=== PATIENT | male | born 1950 | race Caucasian/White ===

== ENCOUNTER 2021-02-25 07:40 | Inpatient (IN) | payer MEDICARE, BC ==
[~2021-02-25] VITALS: Ht 182.9 cm; Wt 93.0 kg
[2021-02-25] MEDS ORDERED: PRED5 PO (08:14)
[2021-02-25] MEDS ORDERED: CYMBALTA30 M2 PO (08:14)
[2021-02-25] MEDS ORDERED: PLAVIX75 MG PO (08:15)
[2021-02-25] MEDS ORDERED: OXYC5 PO (08:15)
[2021-02-25] MEDS ORDERED: TRAZ50 PO (08:16)
[2021-02-25 08:17] LABS: BASOPHILS ABSOLUTE AUTO 0.06 K/mm3 (0.00-0.23); BASOPHILS PERCENT AUTO 1 % (0-2); EOSINOPHILS ABSOLUTE AUTO 0.08 K/mm3 (0.00-0.68); EOSINOPHILS PERCENT AUTO 1 % (0-6); Hematocrit 46.2 % (37.0-53.0); Hemoglobin 15.6 g/dL (13.5-17.5); IMMATURE GRAN ABSOLUTE AUTO 0.02 K/mm3 (0.00-0.10); IMMATURE GRAN PERCENT AUTO 0 % (0-1); LYMPHOCYTES ABSOLUTE AUTO 1.83 K/mm3 (0.84-5.20); LYMPHOCYTES PERCENT AUTO 28 % (21-46); MONOCYTES ABSOLUTE AUTO 0.48 K/mm3 (0.16-1.47); MONOCYTES PERCENT AUTO 7 % (4-13); Mean Corpuscular HGB 30.1 pg (26.0-34.0); Mean Corpuscular HGB Conc 33.8 g/dL (31.5-36.5); Mean Corpuscular Volume 89 fL (80-100); NEUTROPHILS ABSOLUTE AUTO 4.07 K/mm3 (1.96-9.15); NEUTROPHILS PERCENT AUTO 62 % (41-73); Platelet Count 267 K/mm3 (150-400); RDW Coefficient Variation 12.4 % (11.7-14.2); Red Blood Cell Count 5.18 M/mm3 (4.30-5.90); White Blood Cell Count 6.54 K/mm3 (4.00-11.30)
[2021-02-25 08:42] LABS: Alanine Aminotransfer (ALT/SGP 28 U/L (12-78); Albumin, Blood 3.7 g/dL (3.4-5.0); Albumin/Globulin Ratio 1.1 (0.8-1.8); Alk Phos 87 U/L (50-136); Anion Gap 5 mmol/L (6-16); Aspartate Aminotrans (AST/SGOT 14 U/L (12-37); Bilirubin, Total 0.9 mg/dL (0.1-1.0); Blood Urea Nitrogen 16 mg/dL (8-24); Bun/Creatinine Ratio 18.5 (12.0-20.0); CO2, Blood 28 mmol/L (21-32); Calcium, Blood 9.3 mg/dL (8.5-10.1); Chloride, Blood 103 mmol/L (98-108); Creatinine, Blood 0.87 mg/dL (0.60-1.20); Globulin, Blood 3.5 g/dL (2.2-4.0); Glomerular Filtration Rate >60 (60-); Glucose, Blood 274 mg/dL (70-99); Potassium, Blood 4.1 mmol/L (3.5-5.5); Sodium, Blood 136 mmol/L (136-145); Total Protein, Blood 7.2 g/dL (6.4-8.2); Troponin I <0.015 ng/mL (0.000-0.040)
[2021-02-25] MEDS ORDERED: LINZESS145 MCG PO ×2 (13:42→21:17)
[2021-02-25] MEDS ORDERED: PREG300 PO (21:18)
--- NOTE | 2021-02-26 06:10 | NUR ---
SHIFT SUMMARY PT IS A 70 Y/O MALE, ADMITTED FOR CP. HE IS A&O X 4, INDEPENDENT IN THE ROOM. PT REPORTED CONSTANT CHEST PRESSURE DURING THE NIGHT, BETWEEN 7-8/10 THAT WAS NOT RELIEVED BY PRN TYLENOL OR OXYCODONE. HE ALSO REPORTED R SHOULDER AND NECK PAIN THAT WAS PARTIALLY RELIEVED WITH PRN PAIN MEDS. NO C/O NAUSEA OR SOB. TELE SHOWED NSR @ 60S. VITAL SIGNS OTHERWISE STABLE. HOSPITALIST DR CORTEZ INFORMED OF PT CHEST PRESSURE, ORDERED IV FENTANYL FOR RELIEF. NO OTHER ACUTE CHANGES IN PT CONDITION NOTED DURING THE NIGHT. WILL CONTINUE TO MONITOR AND TREAT PER EMAR UNTIL HAND OFF TO DAY SHIFT RN.
[2021-02-26 13:45] LABS: BASOPHILS ABSOLUTE AUTO 0.05 K/mm3 (0.00-0.23); BASOPHILS PERCENT AUTO 1 % (0-2); EOSINOPHILS ABSOLUTE AUTO 0.04 K/mm3 (0.00-0.68); EOSINOPHILS PERCENT AUTO 1 % (0-6); Hematocrit 45.4 % (37.0-53.0); Hemoglobin 15.5 g/dL (13.5-17.5); IMMATURE GRAN ABSOLUTE AUTO 0.02 K/mm3 (0.00-0.10); IMMATURE GRAN PERCENT AUTO 0 % (0-1); LYMPHOCYTES ABSOLUTE AUTO 1.13 K/mm3 (0.84-5.20); LYMPHOCYTES PERCENT AUTO 16 % (21-46); MONOCYTES ABSOLUTE AUTO 0.37 K/mm3 (0.16-1.47); MONOCYTES PERCENT AUTO 5 % (4-13); Mean Corpuscular HGB 29.9 pg (26.0-34.0); Mean Corpuscular HGB Conc 34.1 g/dL (31.5-36.5); Mean Corpuscular Volume 88 fL (80-100); Mean Platelet Volume 10.3 fL (9.1-12.4); NEUTROPHILS PERCENT AUTO 78 % (41-73); Platelet Count 252 K/mm3 (150-400); RDW Coefficient Variation 12.3 % (11.7-14.2); RDW Standard Deviation 39.9 fL (35.1-46.3); Red Blood Cell Count 5.19 M/mm3 (4.30-5.90); White Blood Cell Count 7.31 K/mm3 (4.00-11.30)
[2021-02-26 13:58] LABS: International Normalized Ratio 0.98; Prothrombin Time Results 10.3 Sec (9.7-11.5)
[2021-02-26 14:14] LABS: CHOL/HDL RATIO 3.9; Cholesterol 173 mg/dL (50-200); HDL Cholesterol 44 mg/dL (>39); LDL/HDL RATIO 2.3; Low Density Lipoprotein Chol 100 mg/dL (0-110); Triglycerides 145 mg/dL (30-160); Very Low Density Lipoprot Chol 29 mg/dL (6-32)
--- NOTE | 2021-02-26 15:01 | NUR ---
TRANSFER OF CARE TO [id number] RN. PT TAKEN TO EMD TEACHER FOR ANGIO. REPORT CALLED TO U7 RN.
--- NOTE | 2021-02-26 15:01 | NUR ---
REPORT NOTE THIS NURSE RECIEVED REPORT FROM TIA RN AT 1500. PT NOW IN CHAMBER WALKER.
[2021-02-26 15:41] LABS: SARS-Cov-2 (COVID-19) PCR, MMC NEGATIVE (NEGATIVE)
--- NOTE | 2021-02-26 17:19 | NUR ---
ASSUMPTION OF CARE NOTE PT IS ALERT AND ORIENTED X 4. RIGHT RADIAL ACCESS SITE HAS TR BAND WITH 10 ML OF AIR. TIME OF ARRIVAL TO PCU WAS 1630. VITAL SIGNS ARE STABLE. RIGHT RADIAL SITE HAS NO APPARENT BLEEDING, DISTAL EXTREMETY CAPILLARY REFILL IS 1+, EXTREMETY IS WARM TO TOUCH. SPO2 MONITOR ON RIGHT FINGER AND SATURATIONS 98% VIA RA. PT DENIES CHEST PAIN BT COMPLAINS OF RIGHT SHOULDER PAIN. WILL MEDICATE PER EMAR.
--- NOTE | 2021-02-26 18:19 | NUR ---
CLARIFIED DIET ORDERS WITH DR GANDHI AND NEW ORDERS FOR INSULIN AND CBG ACHS.
--- NOTE | 2021-02-26 19:20 | NUR ---
SHIFT SUMMARY VITAL SIGNS REMAIN STABLE. BLOOD PRESSURE WAS BECOMING ELEVATED W/ SBP 168, PRN HYDRALAZINE GIVEN PER EMAR ORDERS. PT DENIED CHEST PAIN BUT REPORTED RIGHT SHOULDER PAIN 7/10, MEDICATED PER EMAR ORDERS, PAIN NOW 4/10. NS INFUSING IN LEFT AC IV AT 100ML/HR, PT REMAINS ON ROOM AIR, SPO2 IN 90'S. TR BAND ON RIGHT RADIAL SITE HAS 10 ML AIR, SITE HAS REMAINED UNCHANGED FROM PREVIOUS ASSESSMENT. PT IS ALERT AND ORIENTED, USES BEDSIDE URINAL. NO OTHER ACUTE CHANGES NOTED.
--- NOTE | 2021-02-26 20:58 | NUR ---
2CC AIR REMOVED RIGHT RADIAL TR BAND. RANDI RN
--- NOTE | 2021-02-26 21:30 | NUR ---
2ML AIR REMOVED FROM RIGHT RADIAL TR BAND. PT TOLERATED WELL, C/O INABILITY TO SLEEP. EDUCATED ON PREOCESS OF REMOVING AIR AND MONITORING TR BAND/ RIGHT RADIAL SITE. DAO BRYAN
--- NOTE | 2021-02-27 03:02 | NUR ---
RIGHT RADIAL SITE WITHOUT DRAINAGE, OPSITE DRESSING INTACT, GOOD CMS TO FINGERS. SPINT REMAINS REMINDER TO AVOID USING HAND/WRIST. DAO BRYAN
--- NOTE | 2021-02-27 03:10 | NUR ---
SHIFT SUMMARY: PT HAD FAIR NIGHT, FREQUENTLY CHECKS TO RIGHT RADIAL SITE, TR BAND CURRENTLY OFF AND TRANSPARENT DRESSING INTACT, NO OOZONG/BLEEDING NOTED. RADIAL PULSE PALP WITH GOOD CMS TO FINGERS. WRIST IMOBILIZER REMAINS ON REMINDER TO AVOID USE OF WRIST AND HAND. C/O RIGHT SHOULDER PAIN, MEDICATED WITH PRN PAIN MEDS SEE JUN. VSS, TELE SHOWS SB IN THE 50'S WITH OCCASIONAL DIPS INTO 40'S, UNSUSTAINED. BED LOCKED AND LOW, CALL WHITE IN REACH AND PT USING IT APPROPRIATELY . DAO PALACIO
--- NOTE | 2021-02-27 04:35 | NUR ---
NO C HANGE IN RIGHT RADIAL SITE, DAO BRYAN
--- NOTE | 2021-02-27 08:00 | NUR ---
REDNESS ON COCCYX RECEIVED IN REPORT OF REDNESS ON PATIENT'S COCCYX. MEPILEX IN PLACE, C/D/I. AT THIS TIME, PATIENT DOES NOT TOLERATE STAFF TOUCHING PATIENT. PATIENT PULLS AWAY. ATTEMPT TO PLACE PILLOWS UNDER PATIENT'S HIP TO RELIEVE PRESSURE, PATIENT MOVES OFF PILLOWS AFTER PLACED.
--- NOTE | 2021-02-27 12:20 | NUR ---
DISCHARGE PATIENT ALERT AND ORIENTED T/O SHIFT. VSS. IVs REMOVED WNL. DENIED CHEST PAIN OR PRESSURE SINCE START OF SHIFT. DISCHARGE INFORMATION GONE OVER WITH PATIENT. ALL BELONGINGS ACCOMPANIED PATIENT. PICKED HIM UP TO BE DISCHARGED HOME.
== END 2021-02-27 12:17 | disposition home or self-care (01) | DRG 247 ==
LOC: ER 07:40 → ERHOLD 07:41 → MEDS 07:41 → PCU 02-26 14:30
PROVIDERS: Emergency Medicine; Internal Medicine Cardiovascular Disease; ADMIT Family Medicine
PROC: 027035Z Dilation of Coronary Artery, One Artery with Two Drug-eluting Intraluminal Devices, Percutaneous Approach (ICD-10-PCS; principal; 2021-02-26)
PROC: 4A033BC Measurement of Arterial Pressure, Coronary, Percutaneous Approach (ICD-10-PCS; 2021-02-26)
PROC: B2111ZZ Fluoroscopy of Multiple Coronary Arteries using Low Osmolar Contrast (ICD-10-PCS; 2021-02-26)
PROC: 4A023N7 Measurement of Cardiac Sampling and Pressure, Left Heart, Percutaneous Approach (ICD-10-PCS; 2021-02-26)
DX: I25.110 Atherosclerotic heart disease of native coronary artery with unstable angina pectoris (principal); F11.20 Opioid dependence, uncomplicated; G89.29 Other chronic pain; M54.9 Dorsalgia, unspecified; E78.5 Hyperlipidemia, unspecified; M79.7 Fibromyalgia; Z20.822 Contact with and (suspected) exposure to COVID-19; K58.9 Irritable bowel syndrome, unspecified; M19.90 Unspecified osteoarthritis, unspecified site; E11.9 Type 2 diabetes mellitus without complications; I10 Essential (primary) hypertension; Z95.5 Presence of coronary angioplasty implant and graft; Z88.0 Allergy status to penicillin; Z79.02 Long term (current) use of antithrombotics/antiplatelets; Z79.52 Long term (current) use of systemic steroids; Z79.899 Other long term (current) drug therapy
CPT/HCPCS: 36415; 71045; 78452; 80053; 80061; 82947; 83036; 83880; 84484; 85025; 85347; 85610; 86850; 86900; 86901; 93005; 93010; 93017; 93306; 93458; 93571; 93572; 96372; 96374; 96375; 96376; 99152; 99153; 99285-25; A9270; A9500; C1725; C1769; C1874; C1887; C1894; C9600; G0378; J0360; J0706; J1644; J1650; J1815; J2405; J2785; J3010; J7030; J7040; J7512; Q9967; U0004

== ENCOUNTER 2021-03-09 09:08 | Emergency (ER) | payer MEDICARE, BC ==
[~2021-03-09] VITALS: Ht 182.9 cm; Wt 98.4 kg
[~2021-03-09 09:08] MED LIST: CYMBALTA30 M2 PO; LINZESS145 MCG PO; OXYC5 PO; PLAVIX75 MG PO; PRED5 PO; PREG300 PO; TRAZ50 PO
[2021-03-09 09:57] LABS: BASOPHILS ABSOLUTE AUTO 0.06 K/mm3 (0.00-0.23); BASOPHILS PERCENT AUTO 1 % (0-2); EOSINOPHILS ABSOLUTE AUTO 0.08 K/mm3 (0.00-0.68); EOSINOPHILS PERCENT AUTO 1 % (0-6); Hematocrit 43.3 % (37.0-53.0); Hemoglobin 14.7 g/dL (13.5-17.5); IMMATURE GRAN ABSOLUTE AUTO 0.02 K/mm3 (0.00-0.10); IMMATURE GRAN PERCENT AUTO 0 % (0-1); LYMPHOCYTES ABSOLUTE AUTO 1.89 K/mm3 (0.84-5.20); LYMPHOCYTES PERCENT AUTO 25 % (21-46); MONOCYTES ABSOLUTE AUTO 0.46 K/mm3 (0.16-1.47); MONOCYTES PERCENT AUTO 6 % (4-13); Mean Corpuscular HGB 29.9 pg (26.0-34.0); Mean Corpuscular HGB Conc 33.9 g/dL (31.5-36.5); Mean Corpuscular Volume 88 fL (80-100); Mean Platelet Volume 10.5 fL (9.1-12.4); NEUTROPHILS ABSOLUTE AUTO 5.12 K/mm3 (1.96-9.15); NEUTROPHILS PERCENT AUTO 67 % (41-73); Platelet Count 290 K/mm3 (150-400); RDW Coefficient Variation 12.7 % (11.7-14.2); RDW Standard Deviation 41.1 fL (35.1-46.3); Red Blood Cell Count 4.91 M/mm3 (4.30-5.90); White Blood Cell Count 7.63 K/mm3 (4.00-11.30)
[2021-03-09 10:12] LABS: Alanine Aminotransfer (ALT/SGP 37 U/L (12-78); Albumin, Blood 3.4 g/dL (3.4-5.0); Alk Phos 85 U/L (50-136); Anion Gap 6 mmol/L (6-16); Aspartate Aminotrans (AST/SGOT 16 U/L (12-37); Bilirubin, Total 1.1 mg/dL (0.1-1.0); Blood Urea Nitrogen 11 mg/dL (8-24); Bun/Creatinine Ratio 14.3 (12.0-20.0); CO2, Blood 24 mmol/L (21-32); Calcium, Blood 9.3 mg/dL (8.5-10.1); Chloride, Blood 103 mmol/L (98-108); Creatinine, Blood 0.77 mg/dL (0.60-1.20); Globulin, Blood 3.5 g/dL (2.2-4.0); Glomerular Filtration Rate >60 (60-); Glucose, Blood 298 mg/dL (70-99); Potassium, Blood 4.3 mmol/L (3.5-5.5); Sodium, Blood 133 mmol/L (136-145); Total Protein, Blood 6.9 g/dL (6.4-8.2); Troponin I <0.015 ng/mL (0.000-0.040)
[2021-03-09 10:26] LABS: SARS-Cov-2 (COVID-19) PCR, MMC NEGATIVE (NEGATIVE)
== END 2021-03-09 11:55 | disposition left against medical advice (07) ==
LOC: ER 09:08
PROVIDERS: Physician Assistant
DX: R07.9 Chest pain, unspecified (principal); Z53.21 Procedure and treatment not carried out due to patient leaving prior to being seen by health care provider
CPT/HCPCS: 36415; 71046; 80053; 83690; 83880; 84484; 85025; 93005; 93010; 99285-25; U0004

== ENCOUNTER 2021-03-12 11:28 | Observation (INO) | payer MEDICARE, BC ==
[~2021-03-12] VITALS: Ht 182.9 cm; Wt 96.5 kg
[2021-03-12 12:16] LABS: BASOPHILS ABSOLUTE AUTO 0.07 K/mm3 (0.00-0.23); BASOPHILS PERCENT AUTO 1 % (0-2); EOSINOPHILS ABSOLUTE AUTO 0.14 K/mm3 (0.00-0.68); EOSINOPHILS PERCENT AUTO 2 % (0-6); Hematocrit 44.4 % (37.0-53.0); Hemoglobin 14.8 g/dL (13.5-17.5); IMMATURE GRAN ABSOLUTE AUTO 0.02 K/mm3 (0.00-0.10); IMMATURE GRAN PERCENT AUTO 0 % (0-1); LYMPHOCYTES ABSOLUTE AUTO 2.06 K/mm3 (0.84-5.20); LYMPHOCYTES PERCENT AUTO 25 % (21-46); MONOCYTES ABSOLUTE AUTO 0.42 K/mm3 (0.16-1.47); MONOCYTES PERCENT AUTO 5 % (4-13); Mean Corpuscular HGB 29.7 pg (26.0-34.0); Mean Corpuscular HGB Conc 33.3 g/dL (31.5-36.5); Mean Corpuscular Volume 89 fL (80-100); Mean Platelet Volume 10.4 fL (9.1-12.4); NEUTROPHILS ABSOLUTE AUTO 5.68 K/mm3 (1.96-9.15); NEUTROPHILS PERCENT AUTO 68 % (41-73); Platelet Count 289 K/mm3 (150-400); RDW Coefficient Variation 13.1 % (11.7-14.2); RDW Standard Deviation 42.8 fL (35.1-46.3); Red Blood Cell Count 4.98 M/mm3 (4.30-5.90); White Blood Cell Count 8.39 K/mm3 (4.00-11.30)
[2021-03-12] MEDS ORDERED: METFORMIN HCL500 M2 PO (12:19)
[2021-03-12] MEDS ORDERED: LIPITOR80 MG PO (12:19)
[2021-03-12] MEDS ORDERED: METOPROLOL TART50 M6 PO (12:20)
[2021-03-12] MEDS ORDERED: BASAGLAR K100 UNIT/3 SC (12:20)
[2021-03-12] MEDS ORDERED: OXYC5 PO (12:21)
[2021-03-12] MEDS ORDERED: CYCL10 PO (12:22)
[2021-03-12 12:45] LABS: Alanine Aminotransfer (ALT/SGP 38 U/L (12-78); Albumin, Blood 3.4 g/dL (3.4-5.0); Albumin/Globulin Ratio 0.9 (0.8-1.8); Alk Phos 94 U/L (50-136); Anion Gap 7 mmol/L (6-16); Aspartate Aminotrans (AST/SGOT 22 U/L (12-37); Bilirubin, Total 1.1 mg/dL (0.1-1.0); Blood Urea Nitrogen 14 mg/dL (8-24); Bun/Creatinine Ratio 16.8 (12.0-20.0); CO2, Blood 27 mmol/L (21-32); Calcium, Blood 9.2 mg/dL (8.5-10.1); Chloride, Blood 101 mmol/L (98-108); Creatinine, Blood 0.84 mg/dL (0.60-1.20); Globulin, Blood 3.6 g/dL (2.2-4.0); Glomerular Filtration Rate >60 (60-); Glucose, Blood 363 mg/dL (70-99); Potassium, Blood 4.2 mmol/L (3.5-5.5); Sodium, Blood 135 mmol/L (136-145); Troponin I <0.015 ng/mL (0.000-0.040)
--- NOTE | 2021-03-12 19:38 | NUR ---
Mr Wyatt Gr is a 70 year old male with a history of recent stents placement , hypertension , CAD, and diabetes type 2. Patient was initially present to ER with chest pain radiating to jaw and back. Lab at ER shows normal troponin level , EKG shows normal sinus rythm and no st elevation. Reportedly complained of right shoulder pain and back pain at ER and was given morphine , toradol for pain and muscle spasm with some relief. Patient was transfered to medical floor at 1847 for further evaluation and treatment. During a brief admission assessment , patient is alert and oriented x4 , able to verbalize needs . Complained of right shoulder and back pain 7/10, described as aching. Also complained of chest pressure . Oxycodone 5 mg po was given . He was oriented to use call light and bathroom. Incoming nurse was notified and to continue care.
--- NOTE | 2021-03-12 23:18 | NUR ---
dr Menchaca CALLED TO INFORM PT CO INSOMMNIA UNRELIEVED BY TRAZODONE. hE ALSO SAYS LIDODERM PATCH WOULD BE HELPFUL FOR RT SHOULDER PAIN. HE HAS CURRENT RX FOR OXICODONE 5 MG PO Q 6 HRS PRN PAIN & MD MURILLO RX CHANGE TO HOME RX VERSUS DAILY PRN. HE RX MELATONIN 10 MG PO AT HS PRN INSOMMIA LIDO PATCH NOW TO RT SHOULDER. PT RESTING QUIETLY AFTER TORADOL & FLEXERIL RELIEVED RT SHOULDER PAIN . tELE MONITOR SINUS JOAQUIN 56. 3RD TROPONIN PENDING 1ST 2 NEG
[2021-03-13 05:17] LABS: Hematocrit 38.2 % (37.0-53.0); Hemoglobin 12.7 g/dL (13.5-17.5); Mean Corpuscular HGB 29.9 pg (26.0-34.0); Mean Corpuscular HGB Conc 33.2 g/dL (31.5-36.5); Mean Corpuscular Volume 90 fL (80-100); Mean Platelet Volume 10.3 fL (9.1-12.4); Platelet Count 224 K/mm3 (150-400); RDW Coefficient Variation 12.9 % (11.7-14.2); RDW Standard Deviation 42.6 fL (35.1-46.3); Red Blood Cell Count 4.25 M/mm3 (4.30-5.90)
--- NOTE | 2021-03-13 05:20 | NUR ---
70 year old MAle with recent cardiac stents placed at [facility] for CAD. PT has total 6 stents 4 others placed [address] Garcia yesterday while on follow up visit. PT is & also having cariiac issues increased stress from recent move from [place] & 2 year old dog with pancreatitis. PT had fallen while manuvering [place] with pet & he struck rt shoulder. Very painful since that time & since PT has implanted neurostimulator he needs specialized MRI to determine plan of care for rt shoulder injury. Neg troponins x 3 PT has 8/10 rt shoulder pain which wakes him from sleep. Medicated with melatonin 10 mg po at HS & lidocaine patch to rt shoulder. Oxycodone 5 mg po x 1 tylenol 650 mg x 1 with helpful effect. Support offered for recent cardiac cath & acute rt shoulder pain. Tele monitoring shows bradycardia rate ave 54. Denies chest pain.
[2021-03-13 06:15] LABS: Anion Gap 7 mmol/L (6-16); Blood Urea Nitrogen 18 mg/dL (8-24); Bun/Creatinine Ratio 21.1 (12.0-20.0); CO2, Blood 26 mmol/L (21-32); Calcium, Blood 8.9 mg/dL (8.5-10.1); Chloride, Blood 106 mmol/L (98-108); Creatinine, Blood 0.85 mg/dL (0.60-1.20); Glomerular Filtration Rate >60 (60-); Glucose, Blood 204 mg/dL (70-99); Potassium, Blood 4.4 mmol/L (3.5-5.5); Sodium, Blood 139 mmol/L (136-145)
[2021-03-13] MEDS ORDERED: ASPI81CH PO (17:59)
[2021-03-13] MEDS ORDERED: Isosorbide Mono30 MG PO (18:00)
[2021-03-13] MEDS ORDERED: LIDO700A20 TOP (18:00)
[2021-03-13] MEDS ORDERED: MELATONIN5 M1 PO (18:07)
[2021-03-13] MEDS ORDERED: NITR.4SL SL (18:08)
[2021-03-13] MEDS ORDERED: RANO500T PO (18:08)
--- NOTE | 2021-03-13 19:48 | NUR ---
Alert and oriented x3 , able to make needs known. Denies any chest pain , headache , dizziness, and SOB. C/O RIGHT shoulder pain , oxycodone and toradol was given and it was effective. Vital signs are stable. Patient discharged home in stable condition and discharged instruction was given and acknowledged.
== END 2021-03-13 18:56 | disposition home or self-care (01) ==
LOC: ER 11:28 → ERHOLD 11:29 → MEDS 11:29
PROVIDERS: Nurse Practitioner Acute Care; Physician Assistant; ADMIT Internal Medicine
DX: R07.89 Other chest pain (principal); I25.10 Atherosclerotic heart disease of native coronary artery without angina pectoris; I10 Essential (primary) hypertension; E11.9 Type 2 diabetes mellitus without complications; E78.5 Hyperlipidemia, unspecified; M54.9 Dorsalgia, unspecified; G89.29 Other chronic pain; M19.011 Primary osteoarthritis, right shoulder; Z95.5 Presence of coronary angioplasty implant and graft; Z87.891 Personal history of nicotine dependence; Z79.84 Long term (current) use of oral hypoglycemic drugs; Z79.82 Long term (current) use of aspirin; Z79.01 Long term (current) use of anticoagulants
CPT/HCPCS: 36415; 71046; 73200; 80048; 80053; 82947; 83880; 84484; 85025; 85027; 93005; 93010; 96372; 96374; 99285-25; A9270; G0378; J1650; J1815; J1885; J7030

== ENCOUNTER → 2021-04-09 | Outpatient (CLI) | payer MEDICARE, BC ==
[~2021-04-09] MED LIST changes: +ASPI81CH PO; +BASAGLAR K100 UNIT/3 SC; +CYCL10 PO; +Isosorbide Mono30 MG PO; +LIDO700A20 TOP; +LIPITOR80 MG PO; +MELATONIN5 M1 PO; +METFORMIN HCL500 M2 PO; +METOPROLOL TART50 M6 PO; +NITR.4SL SL; +RANO500T PO
[2021-04-09 18:37] LABS: U Amphetamine Screen Not Detected; U Barbituate Screen Not Detected; U Benzodiazapine Screen Not Detected; U Buprenorphine Screen Not Detected; U Cannabinoids Screen Not Detected; U Cocaine Screen Not Detected; U Methadone Screen Not Detected; U Methamphetamine Screen Not Detected; U Opiates Screen Not Detected; U Oxycodone Screen DETECTED; U Phencyclidine Screen Not Detected; U Propoxyphene Screen Not Detected
== END ==
LOC: LAB 14:58 → LAB SHORT 14:58
PROVIDERS: Nurse Practitioner Family
DX: G89.29 Other chronic pain (principal); Z79.891 Long term (current) use of opiate analgesic

== ENCOUNTER → 2021-07-15 | Outpatient (CLI) | payer MEDICARE, BC ==
[2021-07-15 11:48] LABS: U Amphetamine Screen Not Detected; U Barbituate Screen Not Detected; U Benzodiazapine Screen Not Detected; U Buprenorphine Screen Not Detected; U Cannabinoids Screen Not Detected; U Cocaine Screen Not Detected; U Methadone Screen Not Detected; U Methamphetamine Screen Not Detected; U Opiates Screen Not Detected; U Oxycodone Screen Not Detected; U Phencyclidine Screen Not Detected; U Propoxyphene Screen Not Detected
== END | disposition home or self-care (01) ==
LOC: LAB SHORT 10:00
PROVIDERS: Family Medicine
DX: Z51.81 Encounter for therapeutic drug level monitoring (principal); Z79.899 Other long term (current) drug therapy

== ENCOUNTER → 2022-03-11 | Outpatient (CLI) | payer MEDICARE, BC | LOC: LAB SHORT 12:44 → PLD 12:44 | DX: D48.5 Neoplasm of uncertain behavior of skin (principal) | CPT/HCPCS: 88305 ==

== ENCOUNTER → 2022-05-12 | Outpatient (CLI) | payer MEDICARE, BC ==
[2022-05-12 15:54] LABS: U Amphetamine Screen Not Detected; U Barbituate Screen Not Detected; U Benzodiazapine Screen Not Detected; U Buprenorphine Screen Not Detected; U Cannabinoids Screen DETECTED; U Cocaine Screen Not Detected; U Methadone Screen Not Detected; U Methamphetamine Screen Not Detected; U Opiates Screen Not Detected; U Oxycodone Screen DETECTED; U Phencyclidine Screen Not Detected; U Propoxyphene Screen Not Detected
== END | disposition home or self-care (01) ==
LOC: LAB SHORT 09:00
PROVIDERS: Physician Assistant
DX: M54.9 Dorsalgia, unspecified (principal); G89.29 Other chronic pain; Z79.899 Other long term (current) drug therapy

== ENCOUNTER → 2022-08-01 | Outpatient (CLI) | payer MEDICARE, BC ==
[2022-08-01 15:07] LABS: BASOPHILS ABSOLUTE AUTO 0.05 K/mm3 (0.00-0.23); BASOPHILS PERCENT AUTO 1 % (0-2); EOSINOPHILS PERCENT AUTO 2 % (0-6); Hematocrit 43.5 % (37.0-53.0); Hemoglobin 14.6 g/dL (13.5-17.5); IMMATURE GRAN ABSOLUTE AUTO 0.01 K/mm3 (0.00-0.10); IMMATURE GRAN PERCENT AUTO 0 % (0-1); LYMPHOCYTES ABSOLUTE AUTO 1.63 K/mm3 (0.84-5.20); LYMPHOCYTES PERCENT AUTO 26 % (21-46); MONOCYTES ABSOLUTE AUTO 0.38 K/mm3 (0.16-1.47); MONOCYTES PERCENT AUTO 6 % (4-13); Mean Corpuscular HGB 29.3 pg (26.0-34.0); Mean Corpuscular HGB Conc 33.6 g/dL (31.5-36.5); Mean Corpuscular Volume 87 fL (80-100); Mean Platelet Volume 10.6 fL (9.1-12.4); NEUTROPHILS ABSOLUTE AUTO 4.05 K/mm3 (1.96-9.15); NEUTROPHILS PERCENT AUTO 65 % (41-73); Platelet Count 228 K/mm3 (150-400); RDW Coefficient Variation 13.2 % (11.7-14.2); RDW Standard Deviation 41.8 fL (35.1-46.3); Red Blood Cell Count 4.99 M/mm3 (4.30-5.90); White Blood Cell Count 6.22 K/mm3 (4.00-11.30)
[2022-08-01 17:44] LABS: Albumin, Blood 3.8 g/dL (3.4-5.0); Albumin/Globulin Ratio 1.2 (0.8-1.8); Bilirubin, Total 0.6 mg/dL (0.1-1.0); Calcium, Blood 8.8 mg/dL (8.5-10.1); Creatinine, Blood 0.83 mg/dL (0.60-1.20); Globulin, Blood 3.3 g/dL (2.2-4.0); Potassium, Blood 4.3 mmol/L (3.5-5.5); Total Protein, Blood 7.1 g/dL (6.4-8.2)
== END | disposition home or self-care (01) ==
LOC: LAB SHORT 13:59
PROVIDERS: Nurse Practitioner Family
DX: E11.65 Type 2 diabetes mellitus with hyperglycemia (principal)
CPT/HCPCS: 80053; 83036; 85025

== ENCOUNTER 2022-12-04 11:02 | Day surgery (SDC) | payer MEDICARE, BC ==
[~2022-12-04] VITALS: Ht 182.9 cm; Wt 100.8 kg
[2022-12-04] VITALS (10 sets, daily range): BP systolic 153–184; BP diastolic 74–94
[~2022-12-04 11:02] MED LIST changes: +ACETAMINOPHEN PO; +ALLOPURINOL100 MG PO; +FAMO20 PO; +FLUDROCORTISON0.1 M1 PO; +MIDO5 PO; +OZEMPIC0.25 MG/01; +POTCHL20ER PO; +PROP10 PO; +Percocet 5-3251 EACH PO
--- NOTE | 2022-12-04 12:16 | NUR ---
Into sds via wheelchair. Pt reports 6/10 right leg pain. Splint and dagoberto wrap in place.History, Chart, Medications and Allergies reviewed before start of procedure.Lungs clear T/O to Auscultation. Patient confirms NPO status and agrees with scheduled surgery. Patient States Post-Procedure ride home has been arranged.
--- NOTE | 2022-12-04 12:52 | NUR ---
TIME OUT COMPLETED- AT BEDSIDE FOR ADUCTOR AND POPLITEAL NERVE BLOCK.
--- NOTE | 2022-12-04 13:51 | NUR ---
12/04/[address] PERFORMED A BLOCK IN PREOP ON PT RIGHT LEG, SEE HIS DOCUMENTATION. OLD BLISTER NOTED TO PT RIGHT MEDIAL ANKLE, DR SALAZAR NOTIFIED. PROCEEDING WITH CASE.
--- NOTE | 2022-12-04 15:35 | NUR ---
REPORT RECEIVED FROM JAZMÍN DC. PT ABLE TO REPOSITION SELF IN BED. PT REQUESTING PO FOOD AND FLUIDS AND TOLERATING THEM WELL. PT CAST DRESSING C/D/I WITHOUT DRAINAGE, REDNESS, OR SWELLING. PT HAS BRISK CAP REFILL. PT DENIES PAIN, NAUSEA, OR OTHER DISCOMFORTS AT THIS TIME.
--- NOTE | 2022-12-04 16:15 | NUR ---
Patient up to Ambulate independently. Gait steady. VSS AND CONSISTENT WITH PT BASELINE. Discharge instructions reviewed with patient. Patient verbalizes understanding. Copy given to patient to take home. Dressing to procedure site clean, dry, intact with no visible drainage, swelling, erythema or bruising noted. PT HAS BRISK CAPILLARY REFILL. Patient States Post-Procedure ride home has been arranged. Discharged via wheelchair to private car for ride home. PT BELONGINGS RETURNED TO PT.
== END 2022-12-04 16:18 | disposition home or self-care (01) ==
LOC: ORSCMMR 11:02 → ORD 13:00 → ORSCMMR 16:18
PROVIDERS: Orthopaedic Surgery
PROC: 0QSJ04Z Reposition Right Fibula with Internal Fixation Device, Open Approach (ICD-10-PCS; principal; 2022-12-04 12:30)
PROC: 0QSG04Z Reposition Right Tibia with Internal Fixation Device, Open Approach (ICD-10-PCS; principal; 2022-12-04 12:30)
DX: S82.841A Displaced bimalleolar fracture of right lower leg, initial encounter for closed fracture (principal); I10 Essential (primary) hypertension; I25.10 Atherosclerotic heart disease of native coronary artery without angina pectoris; G47.33 Obstructive sleep apnea (adult) (pediatric); E11.9 Type 2 diabetes mellitus without complications; Z79.899 Other long term (current) drug therapy; F41.9 Anxiety disorder, unspecified; Z87.891 Personal history of nicotine dependence
CPT/HCPCS: 82947; C1713; C1769; J0690; J1100; J1170; J2250; J2405; J2704; J3010; J7120

== ENCOUNTER → 2023-05-07 | Outpatient (CLI) | payer MEDICARE, BC ==
[2023-05-08 11:25] LABS: BASOPHILS ABSOLUTE AUTO 0.09 K/mm3 (0.00-0.23); BASOPHILS PERCENT AUTO 1 % (0-2); EOSINOPHILS PERCENT AUTO 1 % (0-6); Hematocrit 45.5 % (37.0-53.0); IMMATURE GRAN ABSOLUTE AUTO 0.02 K/mm3 (0.00-0.10); IMMATURE GRAN PERCENT AUTO 0 % (0-1); LYMPHOCYTES ABSOLUTE AUTO 2.09 K/mm3 (0.84-5.20); LYMPHOCYTES PERCENT AUTO 29 % (21-46); MONOCYTES ABSOLUTE AUTO 0.53 K/mm3 (0.16-1.47); MONOCYTES PERCENT AUTO 7 % (4-13); Mean Corpuscular HGB 29.7 pg (26.0-34.0); Mean Corpuscular Volume 90 fL (80-100); Mean Platelet Volume 10.9 fL (9.1-12.4); NEUTROPHILS ABSOLUTE AUTO 4.39 K/mm3 (1.96-9.15); NEUTROPHILS PERCENT AUTO 61 % (41-73); Platelet Count 303 K/mm3 (150-400); RDW Coefficient Variation 13.1 % (11.7-14.2); RDW Standard Deviation 43.2 fL (35.1-46.3); Red Blood Cell Count 5.05 M/mm3 (4.30-5.90); White Blood Cell Count 7.22 K/mm3 (4.00-11.30)
[2023-05-09 11:55] LABS: A/G RATIO 1.8 (1.2-2.2); BILIRUBIN, TOTAL 0.7 mg/dL (0.0-1.2); CALCIUM, SERUM 9.3 mg/dL (8.6-10.2); CREATININE, SERUM 0.85 mg/dL (0.76-1.27); GLOBULIN, TOTAL 2.4 g/dL (1.5-4.5); POTASSIUM, SERUM 4.9 mmol/L (3.5-5.2); PROTEIN, TOTAL, SERUM 6.8 g/dL (6.0-8.5)
== END ==
LOC: LAB SHORT 15:00 → LAB 15:00
PROVIDERS: Nurse Practitioner Family
DX: E11.65 Type 2 diabetes mellitus with hyperglycemia (principal)
CPT/HCPCS: 80053; 85025

== ENCOUNTER → 2023-06-04 | Outpatient (CLI) | payer MEDICARE, BC | LOC: LAB SHORT 12:26 → LAB 12:26 | DX: L57.0 Actinic keratosis (principal); L82.0 Inflamed seborrheic keratosis | CPT/HCPCS: 88305 ==

== ENCOUNTER → 2024-06-23 | Outpatient (CLI) | payer MEDICARE, BC ==
[2024-06-23 11:57] LABS: BASOPHILS ABSOLUTE AUTO 0.04 K/mm3 (0.00-0.23); BASOPHILS PERCENT AUTO 1 % (0-2); EOSINOPHILS ABSOLUTE AUTO 0.12 K/mm3 (0.00-0.68); EOSINOPHILS PERCENT AUTO 2 % (0-6); Hematocrit 48.4 % (37.0-53.0); IMMATURE GRAN ABSOLUTE AUTO 0.02 K/mm3 (0.00-0.10); IMMATURE GRAN PERCENT AUTO 0 % (0-1); LYMPHOCYTES ABSOLUTE AUTO 1.79 K/mm3 (0.84-5.20); LYMPHOCYTES PERCENT AUTO 31 % (21-46); MONOCYTES ABSOLUTE AUTO 0.41 K/mm3 (0.16-1.47); MONOCYTES PERCENT AUTO 7 % (4-13); Mean Corpuscular HGB 29.9 pg (26.0-34.0); Mean Corpuscular HGB Conc 33.1 g/dL (31.5-36.5); Mean Corpuscular Volume 90 fL (80-100); Mean Platelet Volume 10.2 fL (9.1-12.4); NEUTROPHILS PERCENT AUTO 59 % (41-73); Platelet Count 264 K/mm3 (150-400); RDW Coefficient Variation 13.4 % (11.7-14.2); RDW Standard Deviation 44.1 fL (35.1-46.3); Red Blood Cell Count 5.36 M/mm3 (4.30-5.90); White Blood Cell Count 5.78 K/mm3 (4.00-11.30)
[2024-06-23 12:09] LABS: Albumin, Blood 4.1 g/dL (3.4-5.0); Albumin/Globulin Ratio 1.2 (0.8-1.8); Bilirubin, Total 1.2 mg/dL (0.1-1.0); Bun/Creatinine Ratio 11.8 (12.0-20.0); Calcium, Blood 9.1 mg/dL (8.5-10.1); Creatinine, Blood 0.93 mg/dL (0.60-1.20); Globulin, Blood 3.4 g/dL (2.2-4.0); Potassium, Blood 4.3 mmol/L (3.5-5.5); Total Protein, Blood 7.5 g/dL (6.4-8.2)
== END | disposition home or self-care (01) ==
LOC: LAB SHORT 11:52 → LAB 11:52
PROVIDERS: Physician Assistant
DX: R07.89 Other chest pain (principal)
CPT/HCPCS: 80053; 83690; 84484; 85025